=== PATIENT | female | born 1955 | race Caucasian/White ===

== ENCOUNTER 2016-09-23 13:15 | Emergency (ER) | payer BC ==
[~2016-09-23] VITALS: Ht 160 cm; Wt 52.0 kg
[~2016-09-23 13:15] MED LIST: ACYCLOVIR400 MG PO; ADVIL200 MG PO; ASCORBIC ACID500 M3 PO; ATIVAN1 MG PO; BIOTIN1000 MICRO PO; CLARITIN10 M3 PO; CYANOCOBALAM1000 MCG PO; LIPITOR20 MG PO; LORAZEPAM1 MG PO; MACROBID100 MG PO; ONE DAILY WOME1 EACH PO; PRILOSEC40 MG PO; PROAIR HFA8.5 GM IH; PROBIOTIC1 EAC1 PO; PYRIDIUM100 MG PO; SIMVASTATIN40 MG PO
[2016-09-23] MEDS ORDERED: NAPROSYN500 MG PO (15:08)
[2016-09-23] MEDS ORDERED: TESSALON PERLE100 MG PO (15:08)
[2016-09-23] MEDS ORDERED: ROBITUSSIN NIG118 ML PO (15:08)
[2016-09-23 15:32] VITALS: BP 125/82
== END 2016-09-23 15:32 | disposition home or self-care (01) ==
LOC: EME 13:15
DX: J20.8 Acute bronchitis due to other specified organisms (principal); J04.0 Acute laryngitis; R51 Headache; J30.2 Other seasonal allergic rhinitis; K21.9 Gastro-esophageal reflux disease without esophagitis
CPT/HCPCS: 94640; 99281; 99284; J1100